=== PATIENT | male | born 1940 | race Caucasian/White ===

== ENCOUNTER → 2018-04-13 | Outpatient (CLI) | payer MEDICARE, OTHER ==
[~2018-04-13] MED LIST: ATROVENT NASAL SPRAY; CARV25 PO; HYDCHL12.5 PO; LISHYD2012 PO; LISI20 PO; OMEP20ER PO; SIMV10 PO; SIMV40 PO; XARELTO20 MG PO
[2018-04-16 15:07] LABS: A/G RATIO 1.3 (0.7-1.7); ALBUMIN 3.8 g/dL (2.9-4.4); ALPHA-1-GLOBULIN 0.2 g/dL (0.0-0.4); ALPHA-2-GLOBULIN 0.5 g/dL (0.4-1.0); BETA GLOBULIN 0.9 g/dL (0.7-1.3); GAMMA GLOBULIN 1.4 g/dL (0.4-1.8); GLOBULIN, TOTAL 2.9 g/dL (2.2-3.9); M-SPIKE Not Observed g/dL (Not Observed); PROTEIN, TOTAL, SERUM 6.7 g/dL (6.0-8.5)
== END | disposition home or self-care (01) ==
LOC: LAB 15:35 → LAB SHORT 15:35
PROVIDERS: Internal Medicine Hematology & Oncology
DX: D47.2 Monoclonal gammopathy (principal)
CPT/HCPCS: 84165

== ENCOUNTER 2022-01-28 08:09 | Day surgery (SDC) | payer MEDICARE, OTHER ==
[~2022-01-28] VITALS: Ht 182.9 cm; Wt 86.0 kg
[~2022-01-28 08:09] MED LIST changes: +B-121000 MC3 PO
--- NOTE | 2022-01-28 09:18 | NUR ---
Ambulatory in [facility] warming gown applied. Patient states colon prep results clear. History, Chart, Medications and Allergies reviewed before start of procedure.Lungs clear T/O to Auscultation. Patient confirms NPO status and agrees with scheduled surgery. Pre-Op teaching done. Pt verbalizes understanding. Patient States Post-Procedure ride home has been arranged.
--- NOTE | 2022-01-28 09:22 | NUR ---
01/28/22 0922 Krissy Chu HISTORY, CHART, MEDICATIONS AND ALLERGIES REVIEWED BEFORE START OF PROCEDURE. PATIENT CONFIRMS NPO STATUS AND AGREES WITH SCHEDULED PROCEDURE. 3-LEAD EKG REVIEWED WITH PHYSICIAN PRIOR TO START OF PROCEDURE. MONITOR INTACT WITH CONTINUOUS PULSE OXIMETRY,CAPNOGRAPHY, 3-LEAD EKG, INTERMITTENT BP. SUPPLEMENTAL O2 TO BE TITRATED THROUGHOUT PROCEDURE TO MAINTAIN O2 SATURATION ABOVE 90%. PATIENT DETERMINED TO BE ASA APPROPRIATE FOR PROPOFOL SEDATION PRIOR TO START OF PROCEDURE BY DR. HENDRIX
--- NOTE | 2022-01-28 10:35 | NUR ---
Patient up to Ambulate independently. Gait steady. Discharge instructions reviewed with patient. Patient verbalizes understanding. Copy given to patient to take home, WELL . Patient States Post-Procedure ride home has been arranged. Discharged via wheelchair to private car for ride home.
== END 2022-01-28 10:35 | disposition home or self-care (01) ==
LOC: ORSCMMR 08:09 → ORD 09:00 → ORSCMMR 09:00
PROVIDERS: Internal Medicine Gastroenterology
PROC: 0DBL8ZX Excision of Transverse Colon, Via Natural or Artificial Opening Endoscopic, Diagnostic (ICD-10-PCS; principal; 2022-01-28 09:00)
PROC: 0DBM8ZX Excision of Descending Colon, Via Natural or Artificial Opening Endoscopic, Diagnostic (ICD-10-PCS; principal; 2022-01-28 09:00)
DX: Z12.11 Encounter for screening for malignant neoplasm of colon (principal); D12.3 Benign neoplasm of transverse colon; D12.4 Benign neoplasm of descending colon; K57.90 Diverticulosis of intestine, part unspecified, without perforation or abscess without bleeding; Z86.010 Personal history of colon polyps; I10 Essential (primary) hypertension; E78.00 Pure hypercholesterolemia, unspecified; I48.20 Chronic atrial fibrillation, unspecified; Z85.46 Personal history of malignant neoplasm of prostate; Z79.01 Long term (current) use of anticoagulants; Z79.899 Other long term (current) drug therapy
CPT/HCPCS: 88305; J2704; J7120

== ENCOUNTER 2023-10-20 15:51 | Inpatient (IN) | payer MEDICARE, OTHER ==
[2023-10-20] VITALS (7 sets, daily range): BP systolic 128–150; BP diastolic 83–137
[~2023-10-20] VITALS: Ht 182.9 cm; Wt 85.4 kg
[2023-10-20 16:13] LABS: BASOPHILS ABSOLUTE AUTO 0.05 K/mm3 (0.00-0.23); BASOPHILS PERCENT AUTO 1 % (0-2); EOSINOPHILS ABSOLUTE AUTO 0.15 K/mm3 (0.00-0.68); EOSINOPHILS PERCENT AUTO 2 % (0-6); Hematocrit 42.8 % (37.0-53.0); Hemoglobin 13.9 g/dL (13.5-17.5); IMMATURE GRAN ABSOLUTE AUTO 0.03 K/mm3 (0.00-0.10); IMMATURE GRAN PERCENT AUTO 0 % (0-1); LYMPHOCYTES ABSOLUTE AUTO 1.51 K/mm3 (0.84-5.20); LYMPHOCYTES PERCENT AUTO 19 % (21-46); MONOCYTES ABSOLUTE AUTO 0.72 K/mm3 (0.16-1.47); MONOCYTES PERCENT AUTO 9 % (4-13); Mean Corpuscular HGB 32.1 pg (26.0-34.0); Mean Corpuscular HGB Conc 32.5 g/dL (31.5-36.5); Mean Corpuscular Volume 99 fL (80-100); Mean Platelet Volume 10.2 fL (9.1-12.4); NEUTROPHILS ABSOLUTE AUTO 5.38 K/mm3 (1.96-9.15); NEUTROPHILS PERCENT AUTO 69 % (41-73); Platelet Count 161 K/mm3 (150-400); RDW Coefficient Variation 12.8 % (11.7-14.2); RDW Standard Deviation 46.6 fL (35.1-46.3); Red Blood Cell Count 4.33 M/mm3 (4.30-5.90); White Blood Cell Count 7.84 K/mm3 (4.00-11.30)
[2023-10-20 16:33] LABS: Albumin, Blood 3.3 g/dL (3.4-5.0); Bilirubin, Total 1.7 mg/dL (0.1-1.0); Bun/Creatinine Ratio 18.6 (12.0-20.0); Calcium, Blood 8.4 mg/dL (8.5-10.1); Creatinine, Blood 0.81 mg/dL (0.60-1.20); Globulin, Blood 3.3 g/dL (2.2-4.0); International Normalized Ratio 1.66; Potassium, Blood 4.1 mmol/L (3.5-5.5); Prothrombin Time Results 17.1 Sec (9.7-11.5); Total Protein, Blood 6.6 g/dL (6.4-8.2)
[2023-10-20] MEDS ORDERED: Pantoprazole Sodium 40 MG in NS 50 ML IV SCH (17:25)
[2023-10-20] MEDS ORDERED: DONEPEZIL HCL10 M1 PO (17:25)
[2023-10-20] MEDS ORDERED: Pantoprazole Sodium 40 MG Injection IV ONE (17:25)
[2023-10-20] MEDS ORDERED: NS 1,000 ML IV SCH (18:15)
[2023-10-20] MEDS ORDERED: Atorvastatin 10 MG Tab PO SCH (21:00)
[2023-10-20] MEDS ORDERED: Carvedilol 25 MG Tab PO SCH (21:00)
[2023-10-20] MEDS ORDERED: NS 500 ML IV ONE (21:50)
[2023-10-20 22:19] LABS: Hematocrit 39.4 % (37.0-53.0); Hemoglobin 12.9 g/dL (13.5-17.5)
--- NOTE | 2023-10-20 22:24 | NUR ---
Transfer to ICU 4 Pt arrived to medical floor for lower GI bleed. Upon arrival he had a blood saturated attends and was having continous bloody output from his rectum. He is AOx1 and fell while in the bathroom. No visible bruising or injury, pt stated he landed on his bottom. Called the hospitalist who ordered 500 mL bolus of NS, stat H/H and xfer to ICU. Called and gave report, pt headed to ICU 4.
--- NOTE | 2023-10-20 23:16 | NUR ---
ARRIVAL TO ICU 4 PT WAS A TRANSFER TO ICU 4 FROM ROOM 361 D/T LARGE EPIDODE OF BRIGHT RED BLOOD FROM RECTUM. HE IS A/O X2 AND REPETITIVE WITH ASKING WHERE HE IS AND WHO BROUGHT HIM IN. SPO2 >98% ON RA. AFIB NOTED WITH RATE 90-120'S. BP STABLE WITH SBP 130-150. NO NEW BLOOD SINCE ARRIVAL TO ICU; LARGE AMOUNTS OF DRIED BLOOD NOTED DOWN HIS LEGS AND INTO HIS SOCKS. ABD SOFT WITH HYPOACTIVE BT. 500ML BOLUS COMPLETED BEFORE ARRIVAL TO ICU. NS INFUSING AT 100ML/HR. SEE SHIFT ASSESSMENT FOR FULL ASSESSMENT.
[2023-10-21] VITALS (16 sets, daily range): BP systolic 93–131; BP diastolic 54–97
[2023-10-21 03:36] LABS: Hematocrit 33.6 % (37.0-53.0); Mean Corpuscular HGB 32.4 pg (26.0-34.0); Mean Corpuscular HGB Conc 32.7 g/dL (31.5-36.5); Mean Corpuscular Volume 99 fL (80-100); Mean Platelet Volume 10.2 fL (9.1-12.4); Platelet Count 144 K/mm3 (150-400); RDW Standard Deviation 46.4 fL (35.1-46.3); White Blood Cell Count 8.37 K/mm3 (4.00-11.30)
--- NOTE | 2023-10-21 06:38 | NUR ---
END OF SHIFT SUMMARY NO ACUTE EVENTS SINCE ARRIVAL TO ICU. HE CONT TO BE A/O X2 AND REPETITIVE, CURRENTLY FUCUSED ON "FINDING HIS WATCH", NO WATCH IN PERSONAL BELONGINGS. SPO2 >98% ON RA. AFEBRILE. AFIB NOTED WITH RATE 90-115. SBP 100-130'S WITH MAP >65. NO BM SINCE ARRIVAL; HE ATTEMPTED ONCE AND ONLY PASSED GAS. NO URINE OUTPUT SINCE ARRIVAL TO ICU; ATTEMPTED TO USE URINAL WITHOUT SUCCESS; BLADDER SCAN COMPLETED AND SHOWED 104ML. MILD ABRASION NOTED TO LT FORHEAD AND ABRASION TO LT LATERAL THIGH NOTED; BOTH OPEN TO AIR, NO C/O PAIN TO EITHER AREA, NO BLEEDING OR DRAINAGE NOTED; PICTURES IN CHART. NS INFUSING AT 100ML/HR. WILL REPORT TO AM RN WHEN AVAILABLE.
[2023-10-21] MEDS ORDERED: Nitroglycerin 0.4 MG SUBL SL ONE (08:00)
[2023-10-21] MEDS ORDERED: Nitroglycerin 0.4 MG SUBL SL PRN (08:00)
--- NOTE | 2023-10-21 08:27 | NUR ---
ASSUMED CARE BEDSIDE REPORT FROM TRUNG CHAVEZ AT 0700. PT RESTING IN BED. A&OX SELF, STATES HE IS HOSPITAL AND IN [place] BUT UNSURE OF NAME OF HOSPITAL. FOLLOWS COMMANDS. IMPULSIVE. BED ALARM ON FOR SAFETY. DENIES ABD PAIN, N/V OR OTHER SYMPTOMS. ABD ROUND, SOFT, NON TENDER, BT X 4. ASSISTED c RECTAL EXAM BY DR VINES, BRIGHT RED BLOOD, DENIES PAIN. PLAN TO MONITOR H/H, OK FOR CLEAR LIQUID, NO SCOPE SCHEDULED AT THIS TIME. TOLERATED CLEAR LIQUIDS WELL. AFIB ON MONITOR, RATE 90-100'S, BP STABLE. NS INFUSING AT 100 ML/HR. WILL CONTINUE PLAN OF CARE.
[2023-10-21] MEDS ORDERED: Donepezil HCl 5 MG Tab PO SCH (09:00)
[2023-10-21] MEDS ORDERED: Lisinopril 20 MG Tab PO SCH (09:00)
[2023-10-21 11:36] LABS: BASOPHILS ABSOLUTE AUTO 0.05 K/mm3 (0.00-0.23); BASOPHILS PERCENT AUTO 1 % (0-2); EOSINOPHILS ABSOLUTE AUTO 0.07 K/mm3 (0.00-0.68); EOSINOPHILS PERCENT AUTO 1 % (0-6); Hematocrit 29.6 % (37.0-53.0); Hemoglobin 9.6 g/dL (13.5-17.5); IMMATURE GRAN ABSOLUTE AUTO 0.02 K/mm3 (0.00-0.10); IMMATURE GRAN PERCENT AUTO 0 % (0-1); LYMPHOCYTES ABSOLUTE AUTO 1.37 K/mm3 (0.84-5.20); LYMPHOCYTES PERCENT AUTO 18 % (21-46); MONOCYTES ABSOLUTE AUTO 0.82 K/mm3 (0.16-1.47); MONOCYTES PERCENT AUTO 11 % (4-13); Mean Corpuscular HGB 32.4 pg (26.0-34.0); Mean Corpuscular HGB Conc 32.4 g/dL (31.5-36.5); Mean Corpuscular Volume 100 fL (80-100); Mean Platelet Volume 10.5 fL (9.1-12.4); NEUTROPHILS ABSOLUTE AUTO 5.25 K/mm3 (1.96-9.15); NEUTROPHILS PERCENT AUTO 69 % (41-73); Platelet Count 134 K/mm3 (150-400); RDW Standard Deviation 47.7 fL (35.1-46.3); Red Blood Cell Count 2.96 M/mm3 (4.30-5.90); White Blood Cell Count 7.58 K/mm3 (4.00-11.30)
--- NOTE | 2023-10-21 13:45 | NUR ---
TRANSFER TO PCU PT HAS HAD TWO ELIZABETH RED BM THIS SHIFT. PT ASYMPTOMATIC, DENIES ABD PAIN, N/V, DIZZINESS OR WEAKNESS. PT STANDBY ASSIST TO TOLIET IN ROOM. TOLERATED CLEAR LIQUID DIET WELL. AFIB, RATE 90-100'S. BP STABLE. TRENDING H&H'S. DR VINES ROUNDED AFTER LAST DRAW. NS CONTINUES AT 100 ML/HR. AT BEDSIDE. REPORT TO GREGG CHAVEZ. PT TRANSFERRED TO PCU 10 c ALL BELONGINGS.
--- NOTE | 2023-10-21 14:02 | NUR ---
TRANSFER TO PCU ROOM 10 PT ARRIVES TO PCU ROOM 10 IN W/C WITH NS RUNNING AT 100ML/HR. HE WAS ABLE TO AMBULATE TO BED FROM W/C WITH STAND BY ASSIST. HE IS ORIENTED TO SELF AND PLACE AT THIS TIME. HIS VSS ARE STABLE AND B/P IS 108/81 (91). NO ACTIVE BLEEDING AT THIS TIME. HE IS A-FIB ON THE MONITOR AT 88BPM ASYMPTOMATIC. DENIES ANY N/V/D. HE IS HAVING BLOOD THINNER HELD DUE OT RECTAL BLEEDING. HE IS COMPLIANT AT THIS TIME RESTING IN BED WITH AT BEDSIDE. PER DR. VINES WILL CONTINUE TO MONITOR, POSSIBLE COLONOSCOPY TOMORROW. LUNG SOUNDS CLEAR AT 100% RA.
--- NOTE | 2023-10-21 16:09 | NUR ---
UPDATE: PT IN HALLWAY IN RECLINER WITH PRIMARY RN SITTING IN CHAIR NEXT TO PT. PT DIRECTABLE BUT CONTINUED TO GET OUT OF BED IN ROOM AND QUESTION WHERE HIS IS. HE IS DOING WELL SITTING IN HALLWAY WITH THIS RN AT SIDE. HE REQUIRES SUPERVISION. LAYLAD HIS OWN TELE, CALLED AND GOT ORDER FROM FOR DC.
--- NOTE | 2023-10-21 17:16 | NUR ---
UPDATE: PT AMBULATED WITH NURSE ASSIST TO THE BATHROOM. PT LOCKED HIMSELF IN THE BATHROOM AND STATED IF PT AD OPERATIONS COORDINATOR CAME IN THERE HE WOULD THROW THE BM AND URINE FROM THE HAT AT THE AD OPERATIONS COORDINATOR. AD OPERATIONS COORDINATOR AND THIS RN UNLOCKED DOOR FROM OUTSIDE, PT COOPERATIVE WITH THIS RN. HE HAD DUMPED URINE AND STOOL BEFORE THIS RN COULD MEASURE AMOUNT. BLOOD NOTED IN STOOL. PT WOBBLY WITH AMBULATION. THIS RN TO ASSIST. PT BACK TO RECLINER IN HALLWAY, GIVEN MEAL TRAY. STABLE AT THIS TIME.
--- NOTE | 2023-10-21 18:19 | NUR ---
PCU DAY SHIFT SUMMARY: PT TO ER FROM TRANSFER FROM ICU. PT CONDITION REMAINED STABLE FROM TRANSFER NOTE. HE DID HAVE ONE EPISODE OF A BLOODY BM, UNABLE TO MEASURE DUE TO PT DUMPING SPECIMEN BEFORE RN COULD OBTAIN INFORMATION. PT BACK IN BED AT THIS TIME. COOPERATIVE BUT FORGETFUL. IV FLUIDS INFUSING AT 100ML/HR. VSS. PT TOLERATING PO FLUIDS AND MEDCIATIONS. BED ALARM ON FOR SAFETY. CALL LIGHT IN REACH.
[2023-10-21 18:50] LABS: Hemoglobin 9.2 g/dL (13.5-17.5)
[2023-10-21] MEDS ORDERED: Haloperidol Lactate Inj. 5 MG/ML Injection IV ONE (19:25)
[2023-10-21] MEDS ORDERED: Haloperidol Lactate Inj. 5 MG/ML Injection IV PRN (19:25)
--- NOTE | 2023-10-21 22:33 | NUR ---
PT IS ALERT AND ORIENTED TO SELF, HE IS CONFUSED, HX OF DEMENTIA. PT HAS SITTER FOR SAFETY. HE IS ON RA AND MAINTAINING 02 SATURATION ABOVE 92%, HE DENIES SOB. PER DAY SHIFT REPORT, BEFORE TELE WAS D/C'D PT WAS IN AFIB, HE HAS HISTORY OF LIVING IN AFIB. HE DENIES CHEST PAIN/PRESSURE. BP STABLE. PT ADMITTED FOR LOWER GI BLEED, NO SIGNS OR SYMPTOMS OF BLEEDING NOTED AT THIS TIME, PT HAS HX OF DIVERTICULOSIS. IV TO L AND R AC, BOTH ARE PATENT. R AC IV RUNNING PER EMAR. PT DENIES PAIN AT THIS TIME. HE IS RESTING IN BED AND CALL LIGHT WITHIN REACH. SITTER IN ROOM.
[2023-10-22 01:18] LABS: Hematocrit 27.5 % (37.0-53.0); Hemoglobin 8.9 g/dL (13.5-17.5)
[2023-10-22 04:53] VITALS: BP 131/72
--- NOTE | 2023-10-22 06:55 | NUR ---
NO ACUTE CHANGES, SEE PREVIOUS NOTE.
[2023-10-22 07:19] LABS: Hematocrit 27.5 % (37.0-53.0); Hemoglobin 8.9 g/dL (13.5-17.5)
[2023-10-22 07:36] LABS: Bun/Creatinine Ratio 16.2 (12.0-20.0); Calcium, Blood 7.2 mg/dL (8.5-10.1); Creatinine, Blood 0.68 mg/dL (0.60-1.20); Potassium, Blood 3.9 mmol/L (3.5-5.5)
[2023-10-22 08:33] VITALS: BP 111/89
--- NOTE | 2023-10-22 10:43 | NUR ---
AM NOTES; PT REMAINS ON 1;1 SITTER D/T CONFUSION. PT NEEDING FREQUENT REDIRECTION. FOLLOWS COMMANDS. ALERT AND ORIENTED X2. FORGETFUL. VITALS STABLE. NO OBVIOUS SIGNS OF BLEEDING OF THIS TIME NO BM REPORTED. TRENDING H&H STABLE. DR VINES CAME IN SAW PT NO COLONOSCOPY FOR TODAY LONG H&H REMAINS STABLE. FOR POSS ANGIOGRAM IN AM. PT REMAINS ON CLEAR LIQUID DIET, TOLERATING WELL. PT WAS UP IN CHAIR FOR BREAKFAST. BACK IN BED NOW AND IS RESTING. NO OTHER ISSUES AT THIS TIME WILL CONTINUE TO MONITOR
[2023-10-22 12:04] VITALS: BP 107/64
[2023-10-22 15:00] LABS: Hematocrit 14.2 % (37.0-53.0); Hemoglobin 4.4 g/dL (13.5-17.5)
[2023-10-22 15:28] LABS: Hematocrit 26.7 % (37.0-53.0); Hemoglobin 8.6 g/dL (13.5-17.5)
[2023-10-22 16:47] VITALS: BP 124/84
--- NOTE | 2023-10-22 17:00 | NUR ---
PT SUMMARY/UPDATE; PT'S H&H RESULT CAME BACK FOR 1400 WITH HGB AT 4.4, DR VINES MADE AWARE ORDERED A REDRAW, BLOOD WAS DRAWN BELOW PIV ON LAC WHERE MAINTENANCE IV FLUID IS RUNNING. ORDERED 2PRBC THEN RESULTS CAME BACK FOR REDRAW AND HGB WAS AT 8.6. PT HAS NO OTHER CLINICAL SYMPTOMS VITALS HRR AFIB 70-90'S, SBP 120'S, SATS ABOVE 95% ON RA, AFEBRILE, TELE WAS PLACED. PT ONLY HAD ONE SMALL BM WITH SOME CLOTS AND DARK BLOOD UPON WIPING. MADE AWARE, PLAN FOR COLONOSCOPY FOR TOMORROW AT 12NN NPO FOR BREAKFAST AND TO START PREP TONIGHT AT 1800. PT REMAINED ON CLEAR LIQUID DIET. PT REMAINED ON 1;1 SITTER. WAS GIVEN UPDATE VIA PHONE ABOUT PT AND PLAN FOR COLONOSCOPY. PT HAS BEEN AMBULATING TO THE BATHROOM VIA SBA. NO OTHER ISSUES ENCOUNTERED WILL REPORT TO ONCOMING SHIFT
[2023-10-22] MEDS ORDERED: Peg/Electrolytes 4,000 ML BTL PO ONE (18:00)
[2023-10-22 22:05] VITALS: BP 126/71
--- NOTE | 2023-10-22 22:20 | NUR ---
PT IS ALERT AND PLEASANTLY CONFUSED, HE IS ORIENTED TO HIMSELF. HE IS ON RA AND MAINTAINING 02 SATURATION ABOVE 92%, HE DENIES SOB. HR AFIB 90'S, BP STABLE AND HE DENIES CHEST PAIN/PRESSURE. PT STARTED FIRST PART OF BOWEL PREP DURING DAY SHIFT FOR COLONOSCOPY 10/23/23. PT TO START SECOND HALF OF PREP AROUND 0700 10/23/23. PT HAS HAD BRIGHT RED BLOODY STOOL TONIGHT, HE DENIES PAIN. PT AMBULATES TO RESTROOM WITH SBA AND TOLERATES WELL. PT ON CLEAR LIQUIDS UNTIL 0700 10/23/23. 100ML/HR NS RUNNING PER EMAR. PT HAS 1:1 SITTER. HE IS RETING IN BED AND CALL LIGHT WITHIN REACH.
[2023-10-22 23:20] VITALS: BP 135/86
[2023-10-23] VITALS (13 sets, daily range): BP systolic 107–153; BP diastolic 66–100
[2023-10-23 06:12] LABS: Hematocrit 23.8 % (37.0-53.0); Hemoglobin 7.7 g/dL (13.5-17.5)
--- NOTE | 2023-10-23 06:16 | NUR ---
NO ACUTE CHANGES, SEE PREVIOUS NOTE.
--- NOTE | 2023-10-23 06:28 | NUR ---
PT REFUSED TO KEEP TELE ON TONIGHT. BEFORE PT REMOVED AFIB 60'S-90'S. BP STABLE AND PT DENIES CHEST PAIN/PRESSURE. PT STARTING TO DRINK THE REST OF HIS PREP FOR COLONOSCOPY FOR TODAY 10/23/23 AND NPO AFTER. 1:1 SITTER IN ROOM WITH PT.
[2023-10-23 06:55] LABS: Bun/Creatinine Ratio 12.2 (12.0-20.0); Calcium, Blood 7.5 mg/dL (8.5-10.1); Creatinine, Blood 0.66 mg/dL (0.60-1.20); Potassium, Blood 3.4 mmol/L (3.5-5.5)
[2023-10-23] MEDS ORDERED: Peg/Electrolytes 4,000 ML BTL PO ONE (07:00)
[2023-10-23] MEDS ORDERED: NS 500 ML IV ONE (08:04)
[2023-10-23] MEDS ORDERED: Potassium Chl 20MEQ/Water100ML 100 ML IV STA (08:15)
[2023-10-23] MEDS ORDERED: Dextrose 5% 250 ML IV SCH (08:20)
[2023-10-23] MEDS ORDERED: propofoL 40 ML IV ONE (10:10)
[2023-10-23] MEDS ORDERED: Lactated Ringer's 1,000 ML IV SCH (10:30)
--- NOTE | 2023-10-23 13:27 | NUR ---
10/23/23 [address] GILLIS, SEE ANESTHESIA RECORDS.
[2023-10-23] MEDS ORDERED: NS 500 ML IV SCH (14:20)
--- NOTE | 2023-10-23 15:39 | NUR ---
PT RETURNED FROM COLONOSCOPY PROCEDURE. BEDSIDE REPORT RECEIVED FROM ADONIS CHAVEZ. PT IS AWAKE, ABLE TO ANSWER QUESTIONS. NO S/S OF DISTRESS. ON RA. PT IS MORE CONFUSED/FORGETFUL. PT TX TO BED VIA SLIDE SHEET. VSS.
--- NOTE | 2023-10-23 16:40 | NUR ---
SHIFT SUMMARY: PT IS A/O TO SELF AND FAMILY, STANDBY ASSIST. PLEASANT AND COOPERATIVE WITH CARE. PT HAD COLONOSCOPY TODAY. PT WAS PASSING ELIZABETH RED BLOOD THAT LIGHTENED AT END OF BOWEL PREP PRIOR TO COLONOSCOPY. POST PROCEDURE PT HAS HAD NO FURTHER BM'S OF YET. PT CONTINUES TO BE NPO. AWAITING ORDERS.
[2023-10-24] VITALS (8 sets, daily range): BP systolic 88–151; BP diastolic 58–88
[2023-10-24 04:12] LABS: BASOPHILS ABSOLUTE AUTO 0.04 K/mm3 (0.00-0.23); BASOPHILS PERCENT AUTO 1 % (0-2); EOSINOPHILS ABSOLUTE AUTO 0.11 K/mm3 (0.00-0.68); EOSINOPHILS PERCENT AUTO 2 % (0-6); Hemoglobin 9.1 g/dL (13.5-17.5); IMMATURE GRAN ABSOLUTE AUTO 0.02 K/mm3 (0.00-0.10); IMMATURE GRAN PERCENT AUTO 0 % (0-1); LYMPHOCYTES ABSOLUTE AUTO 1.68 K/mm3 (0.84-5.20); LYMPHOCYTES PERCENT AUTO 23 % (21-46); MONOCYTES ABSOLUTE AUTO 0.62 K/mm3 (0.16-1.47); MONOCYTES PERCENT AUTO 8 % (4-13); Mean Corpuscular HGB 31.6 pg (26.0-34.0); Mean Corpuscular HGB Conc 32.5 g/dL (31.5-36.5); Mean Corpuscular Volume 97 fL (80-100); Mean Platelet Volume 10.6 fL (9.1-12.4); NEUTROPHILS ABSOLUTE AUTO 4.99 K/mm3 (1.96-9.15); NEUTROPHILS PERCENT AUTO 67 % (41-73); Platelet Count 128 K/mm3 (150-400); RDW Coefficient Variation 14.3 % (11.7-14.2); RDW Standard Deviation 50.8 fL (35.1-46.3); Red Blood Cell Count 2.88 M/mm3 (4.30-5.90); White Blood Cell Count 7.46 K/mm3 (4.00-11.30)
[2023-10-24 04:37] LABS: Bun/Creatinine Ratio 10.8 (12.0-20.0); Calcium, Blood 7.8 mg/dL (8.5-10.1); Creatinine, Blood 0.55 mg/dL (0.60-1.20); Magnesium, Blood 1.8 mg/dL (1.6-2.4); Potassium, Blood 3.2 mmol/L (3.5-5.5)
--- NOTE | 2023-10-24 05:58 | NUR ---
1915 Assumed care of pt, [place] report completed. Shift plan of care reviewed with pt, unable to assess for retention. Will continue to reinforce as needed. Pt with uneventful shift, appears to have slept well. 1:1 sitter at bedside throughout shift for pt safety. Pt had one episode of aggression where he was difficult to redirect, taking 2 staff to assist him back to bed. PRN dose of Haldol given x1 with good results. Pt soothed by ability to call on phone earlier in shift. K 3.2 this morning, down from 3.4 yesterday. Pt with a burst of 17 beats ectopy at 0320, self limiting. Pt slept through and VSS. Will report to day shift for possible electrolyte replacement. No further ectopy noted. Please see full assessment for addtional details. No further complaints or concerns at this time, will continue to monitor.
[2023-10-24] MEDS ORDERED: Potassium Chloride 40 MEQ in NS 250 ML IV ONE (09:35)
[2023-10-24 13:56] LABS: Hematocrit 26.1 % (37.0-53.0); Hemoglobin 8.7 g/dL (13.5-17.5)
--- NOTE | 2023-10-24 18:21 | NUR ---
SHIFT SUMMARY PT ALERT, ORIENTED X1 TO SELF ONLY. PT UP IN SBA IN ROOM. PT DENIES PAIN, CHEST PAIN/PRESSURE, SOB, NAUSEA, DIZZINESS AND NUMB/TINGLING. TELE AFIB 70-90'S, BP DROPPED TO 88/58, MD AWARE, NO NEW ORDER, TRENDING UP, DISCUSSED EVENING DOSE OF COREG WITH MD, CONTINUE WITH MEDICDATION ORDERED. ABD SOFT, NONTENDER, BT+ T/O. OTHER VSS. NO OTHER ACUTE CHAGNES NOTED. WILL CONTINUE TO MONITOR.
[2023-10-25 04:18] LABS: Hematocrit 26.5 % (37.0-53.0); Hemoglobin 8.8 g/dL (13.5-17.5); Mean Corpuscular HGB 32.2 pg (26.0-34.0); Mean Corpuscular HGB Conc 33.2 g/dL (31.5-36.5); Mean Corpuscular Volume 97 fL (80-100); Platelet Count 134 K/mm3 (150-400); RDW Standard Deviation 48.8 fL (35.1-46.3); Red Blood Cell Count 2.73 M/mm3 (4.30-5.90); White Blood Cell Count 8.35 K/mm3 (4.00-11.30)
[2023-10-25 04:39] LABS: Bun/Creatinine Ratio 15.4 (12.0-20.0); Calcium, Blood 7.6 mg/dL (8.5-10.1); Creatinine, Blood 0.58 mg/dL (0.60-1.20); Potassium, Blood 3.3 mmol/L (3.5-5.5)
--- NOTE | 2023-10-25 05:26 | NUR ---
1915 Assumed care of pt, bedside report completed. Shift plan of care reviewed with pt though will require repeated re-enforcement due to pt diminished cognition. Pt with fair shift tonight, very similar to last cook night when this RN cared for pt as well. Haldol 2.5mg IVP given x1 for agitation with good results. 1:1 sitter remains at bedside for pt safety. Has taken 2 staff at times to redirect pt when pt wants to leave room to "go home." VSS and pt repeatedly denies pain. Please see full assessment for additional details. No further complaints or concerns at this time, will continue to monitor. denies pain.
[2023-10-25 08:55] VITALS: BP 106/73
[2023-10-25] MEDS ORDERED: Potassium Chloride 20 MEQ TabCR PO ONE (09:00)
--- NOTE | 2023-10-25 09:12 | NUR ---
AM NOTE this rn assumed care at 0700. vital signs stable. tele aflutter/afib 80-90s. patient is alert and oriented to self. patient has a one on one sitter due to forgetfullness and safety. patient denies pain, chest pain/pressure or shortness of breath. see shift assessment for further detials. this rn called md cary due to low potassim level 3.3, see lab, oral potassium ordered, see orders. plan of care is up to date at this time.
[2023-10-25 11:04] VITALS: BP 115/75
--- NOTE | 2023-10-25 11:05 | NUR ---
DISCHARGE MEDS discharge meds faxed to [facility] [address], no new medications, but stopped medications, so faxed for update.
--- NOTE | 2023-10-25 11:48 | NUR ---
DISCHARGE this rn went over discharge education with patient david. no new medication. educated on follow up appointments and patient verbalized understanding. discharge education with patient and patient . patient left in no distress with all belongings.
== END 2023-10-25 11:52 | disposition home health service (06) | DRG 378 ==
LOC: ER 15:51 → ICUE 19:57 → ERHOLD 19:57 → PCU 19:57 → MEDS 20:19 → ICUE 22:20 → PCU 10-21 13:45
PROVIDERS: Internal Medicine; Nurse Practitioner Acute Care; Student in an Organized Health Care Education/Training Program; Surgery; ADMIT Internal Medicine
PROC: 30233N1 Transfusion of Nonautologous Red Blood Cells into Peripheral Vein, Percutaneous Approach (ICD-10-PCS; principal; 2023-10-20)
PROC: 0DJD8ZZ Inspection of Lower Intestinal Tract, Via Natural or Artificial Opening Endoscopic (ICD-10-PCS; 2023-10-23)
DX: K57.31 Diverticulosis of large intestine without perforation or abscess with bleeding (principal); D62 Acute posthemorrhagic anemia; I48.20 Chronic atrial fibrillation, unspecified; I10 Essential (primary) hypertension; E78.5 Hyperlipidemia, unspecified; G30.9 Alzheimer's disease, unspecified; F02.80 Dementia in other diseases classified elsewhere, unspecified severity, without behavioral disturbance, psychotic disturbance, mood disturbance, and anxiety; K63.5 Polyp of colon; E87.6 Hypokalemia; Z79.01 Long term (current) use of anticoagulants; Z79.899 Other long term (current) drug therapy; Z87.19 Personal history of other diseases of the digestive system; Z90.49 Acquired absence of other specified parts of digestive tract; Z98.890 Other specified postprocedural states; Z87.891 Personal history of nicotine dependence
CPT/HCPCS: 36415; 36430; 74177; 80048; 80053; 83735; 85014; 85018; 85025; 85027; 85610; 85730; 86850; 86900; 86901; 86923; 93005; 93010; 96365-59; 97110; 97116; 97161; 99285-25; A9270; C9113; J1630; J2704; J3480; J7030; J7040; J7050; J7120; P9016; Q9967

== ENCOUNTER 2023-10-31 10:51 | Emergency (ER) | payer MEDICARE, OTHER ==
[~2023-10-31] VITALS: Ht 182.9 cm; Wt 83.9 kg
[~2023-10-31 10:51] MED LIST changes: +DONEPEZIL HCL10 M1 PO
[2023-10-31] MEDS ORDERED: NS 1,000 ML IV SCH (11:00)
[2023-10-31] MEDS ORDERED: NS 500 ML IV SCH (11:20)
[2023-10-31 11:29] LABS: BASOPHILS ABSOLUTE AUTO 0.04 K/mm3 (0.00-0.23); BASOPHILS PERCENT AUTO 1 % (0-2); EOSINOPHILS ABSOLUTE AUTO 0.17 K/mm3 (0.00-0.68); EOSINOPHILS PERCENT AUTO 3 % (0-6); Hematocrit 31.2 % (37.0-53.0); Hemoglobin 9.8 g/dL (13.5-17.5); IMMATURE GRAN ABSOLUTE AUTO 0.02 K/mm3 (0.00-0.10); IMMATURE GRAN PERCENT AUTO 0 % (0-1); LYMPHOCYTES ABSOLUTE AUTO 1.14 K/mm3 (0.84-5.20); LYMPHOCYTES PERCENT AUTO 18 % (21-46); MONOCYTES ABSOLUTE AUTO 0.51 K/mm3 (0.16-1.47); MONOCYTES PERCENT AUTO 8 % (4-13); Mean Corpuscular HGB 31.6 pg (26.0-34.0); Mean Corpuscular HGB Conc 31.4 g/dL (31.5-36.5); Mean Corpuscular Volume 101 fL (80-100); NEUTROPHILS ABSOLUTE AUTO 4.48 K/mm3 (1.96-9.15); NEUTROPHILS PERCENT AUTO 71 % (41-73); Platelet Count 211 K/mm3 (150-400); RDW Coefficient Variation 14.3 % (11.7-14.2); White Blood Cell Count 6.36 K/mm3 (4.00-11.30)
[2023-10-31 11:34] LABS: IMMATURE RETIC FRACTION 25.3 % (2.3-16.0); RETIC HGB EQUIVALENT 30.7 pg (28.20-36.60); RETICULOCYTE ABSOLUTE 0.1359 M/mm3 (0.0200-0.1100); RETICULOCYTE COUNT PERCENT 4.44 % (0.50-2.50)
[2023-10-31 12:09] LABS: Albumin, Blood 3.1 g/dL (3.4-5.0); Bilirubin, Total 1.5 mg/dL (0.1-1.0); Bun/Creatinine Ratio 16.7 (12.0-20.0); Calcium, Blood 7.9 mg/dL (8.5-10.1); Creatinine, Blood 0.9 mg/dL (0.60-1.20); Globulin, Blood 3.1 g/dL (2.2-4.0); Potassium, Blood 4.3 mmol/L (3.5-5.5); Total Protein, Blood 6.2 g/dL (6.4-8.2)
[2023-10-31 13:30] VITALS: BP 107/81
== END 2023-10-31 13:44 | disposition home or self-care (01) ==
LOC: ER 10:51
PROVIDERS: Emergency Medicine; Physician Assistant
DX: K62.5 Hemorrhage of anus and rectum (principal); I48.91 Unspecified atrial fibrillation; F03.90 Unspecified dementia, unspecified severity, without behavioral disturbance, psychotic disturbance, mood disturbance, and anxiety; K57.90 Diverticulosis of intestine, part unspecified, without perforation or abscess without bleeding; I10 Essential (primary) hypertension; Z87.891 Personal history of nicotine dependence; Z79.899 Other long term (current) drug therapy
CPT/HCPCS: 80053; 82607; 82746; 85025; 85045; 96360; 99284-25; J7030

== ENCOUNTER → 2023-11-26 | Outpatient (CLI) | payer MEDICARE, OTHER ==
[2023-11-26 13:19] LABS: BASOPHILS ABSOLUTE AUTO 0.06 K/mm3 (0.00-0.23); BASOPHILS PERCENT AUTO 1 % (0-2); EOSINOPHILS ABSOLUTE AUTO 0.11 K/mm3 (0.00-0.68); EOSINOPHILS PERCENT AUTO 2 % (0-6); Hematocrit 37.7 % (37.0-53.0); Hemoglobin 11.9 g/dL (13.5-17.5); IMMATURE GRAN ABSOLUTE AUTO 0.02 K/mm3 (0.00-0.10); IMMATURE GRAN PERCENT AUTO 0 % (0-1); LYMPHOCYTES ABSOLUTE AUTO 1.07 K/mm3 (0.84-5.20); LYMPHOCYTES PERCENT AUTO 18 % (21-46); MONOCYTES ABSOLUTE AUTO 0.51 K/mm3 (0.16-1.47); MONOCYTES PERCENT AUTO 8 % (4-13); Mean Corpuscular HGB 31.2 pg (26.0-34.0); Mean Corpuscular HGB Conc 31.6 g/dL (31.5-36.5); Mean Corpuscular Volume 99 fL (80-100); Mean Platelet Volume 11.5 fL (9.1-12.4); NEUTROPHILS ABSOLUTE AUTO 4.34 K/mm3 (1.96-9.15); NEUTROPHILS PERCENT AUTO 71 % (41-73); Platelet Count 164 K/mm3 (150-400); RDW Coefficient Variation 13.6 % (11.7-14.2); RDW Standard Deviation 49.2 fL (35.1-46.3); Red Blood Cell Count 3.81 M/mm3 (4.30-5.90); White Blood Cell Count 6.11 K/mm3 (4.00-11.30)
== END | disposition home or self-care (01) ==
LOC: LAB SHORT 11:43
PROVIDERS: Internal Medicine
DX: K57.31 Diverticulosis of large intestine without perforation or abscess with bleeding (principal)
CPT/HCPCS: 85025

== ENCOUNTER → 2025-01-15 | Outpatient (CLI) | payer MEDICARE, OTHER ==
[2025-01-18 14:42] LABS: Stool Occult Blood Guaiac 1 Neg (Neg)
== END ==
LOC: LAB SHORT 21:00 → LAB 21:00 → LAB FUT 01-10 14:50
PROVIDERS: Internal Medicine
DX: R63.4 Abnormal weight loss (principal)
CPT/HCPCS: 82272

== ENCOUNTER 2025-03-04 15:20 | Emergency (ER) | payer MEDICARE, OTHER ==
[~2025-03-04] VITALS: Ht 185.4 cm; Wt 86.2 kg
[2025-03-04 15:49] LABS: BASOPHILS ABSOLUTE AUTO 0.04 K/mm3 (0.00-0.23); BASOPHILS PERCENT AUTO 1 % (0-2); EOSINOPHILS ABSOLUTE AUTO 0.15 K/mm3 (0.00-0.68); EOSINOPHILS PERCENT AUTO 2 % (0-6); Hematocrit 44.4 % (37.0-53.0); Hemoglobin 14.7 g/dL (13.5-17.5); IMMATURE GRAN ABSOLUTE AUTO 0.01 K/mm3 (0.00-0.10); IMMATURE GRAN PERCENT AUTO 0 % (0-1); LYMPHOCYTES ABSOLUTE AUTO 1.86 K/mm3 (0.84-5.20); LYMPHOCYTES PERCENT AUTO 30 % (21-46); MONOCYTES ABSOLUTE AUTO 0.63 K/mm3 (0.16-1.47); MONOCYTES PERCENT AUTO 10 % (4-13); Mean Corpuscular HGB Conc 33.1 g/dL (31.5-36.5); Mean Corpuscular Volume 100 fL (80-100); NEUTROPHILS ABSOLUTE AUTO 3.61 K/mm3 (1.96-9.15); NEUTROPHILS PERCENT AUTO 57 % (41-73); NRBC ABSOLUTE 0.00 K/mm3 (0.00-0.02); NRBC Auto 0.0 /100 WBC (0.0-0.2); Platelet Count 171 K/mm3 (150-400); RDW Coefficient Variation 12.6 % (11.7-14.2); RDW Standard Deviation 46.8 fL (35.1-46.3)
[2025-03-04 16:27] LABS: Alanine Aminotransfer (ALT/SGP 60.0 U/L (12-78); Albumin, Blood 3.4 g/dL (3.4-5.0); Albumin/Globulin Ratio 0.9 (0.8-1.8); Anion Gap 6.0 mmol/L (3-11); Aspartate Aminotrans (AST/SGOT 52.0 U/L (12-37); Bilirubin, Total 1.4 mg/dL (0.1-1.0); Blood Urea Nitrogen 18.0 mg/dL (8-24); CO2, Blood 31.0 mmol/L (21-32); Calcium, Blood 8.7 mg/dL (8.5-10.1); Chloride, Blood 105.0 mmol/L (98-108); Creatinine, Blood 0.67 mg/dL (0.60-1.20); Globulin, Blood 3.8 g/dL (2.2-4.0); Glucose, Blood 85.0 mg/dL (70-99); Potassium, Blood 4.0 mmol/L (3.5-5.5); Sodium, Blood 138.0 mmol/L (136-145); Total Protein, Blood 7.2 g/dL (6.4-8.2)
[2025-03-04 20:00] VITALS: BP 153/103
== END 2025-03-04 20:44 | disposition home or self-care (01) ==
LOC: ER 15:20
PROVIDERS: Student in an Organized Health Care Education/Training Program
DX: R61 Generalized hyperhidrosis (principal); R74.01 Elevation of levels of liver transaminase levels; Z79.01 Long term (current) use of anticoagulants; Z87.891 Personal history of nicotine dependence; I48.91 Unspecified atrial fibrillation
CPT/HCPCS: 71046; 80053; 84484; 85025; 93005; 93010; 99284-25